=== PATIENT | male | born 1945 | race Caucasian/White ===

== ENCOUNTER 2016-08-21 13:43 | Emergency (ER) | payer OTHER ==
[2016-08-21] MEDS ORDERED: ACETAMINOPHEN 325 MG TABLET PO STA (14:40)
[2016-08-21] MEDS ORDERED: ACETAMINOPHEN 325 MG TABLET PO ONE (14:42)
== END 2016-08-21 16:42 | disposition home or self-care (01) ==
DX: S06.0X0A Concussion without loss of consciousness, initial encounter (principal); S00.03XA Contusion of scalp, initial encounter; S00.01XA Abrasion of scalp, initial encounter; W22.8XXA Striking against or struck by other objects, initial encounter; Y92.009 Unspecified place in unspecified non-institutional (private) residence as the place of occurrence of the external cause; G44.319 Acute post-traumatic headache, not intractable
CPT/HCPCS: 70450; 99283; 99284; A9270

== ENCOUNTER 2022-08-12 14:18 | Outpatient (CLI) | payer MEDICARE | END 2022-08-12 14:19 | disposition critical access hospital (66) | LOC: EMS 14:18 | DX: S00.12XA Contusion of left eyelid and periocular area, initial encounter (principal); S00.83XA Contusion of other part of head, initial encounter; M25.562 Pain in left knee; W11.XXXA Fall on and from ladder, initial encounter; Y92.008 Other place in unspecified non-institutional (private) residence as the place of occurrence of the external cause | CPT/HCPCS: A0425; A0429 ==

== ENCOUNTER 2022-08-12 14:36 | Emergency (ER) | payer MEDICARE, OTHER ==
[2022-08-12] MEDS ORDERED: ACETAMINOPHEN 325 MG TABLET PO STA (15:15)
--- NOTE | 2022-08-12 15:18 | ED Physician Documentation ---
History of Present Illness - Stated complaint Stated Complaint: FALL/HEAD LAC - Chief complaint Chief Complaint: Trauma Hd/Nk - History obtained from History obtained from: Patient, Family, EMS - Additonal information Additional information: The patient is brought to the emergency department by EMS for chief complaint of ground-level fall and head injury. The patient states that he was standing on a stepstool and suddenly pitched forward and fell onto the concrete floor of his garage. The patient was able to get himself up and walk into the house, but his told him to call EMS. The patient primarily hit the floor with his right face and has noticed increasing bruising and swelling over his right eyebrow. He also states that he hurt his left knee somehow in the process of falling. Patient however has been able to ambulate on the left lower extremity without difficulty. The patient denies any pain anywhere else. No other head trauma or loss of consciousness. No pain at any level of the spine. No hip or rib pain. No difficulty breathing or abdominal pain. He is not anticoagulated. Review of Systems Ten Systems: 10 systems reviewed and negative Constitutional: reports: Reviewed and negative Eyes: reports: Reviewed and negative Ears: reports: Reviewed and negative Nose: reports: Reviewed and negative Throat: reports: Reviewed and negative Cardiac: reports: Reviewed and negative Respiratory: reports: Reviewed and negative GI: reports: Reviewed and negative : reports: Reviewed and negative Skin: reports: Reviewed and negative Musculoskeletal: reports: Reviewed and negative Neurologic: reports: Head injury. denies: LOC Psychiatric: reports: Reviewed and negative Endocrine: reports: Reviewed and negative Immunocompromised: reports: Reviewed and negative PD PAST MEDICAL HISTORY - Past Medical History Cardiovascular: None Respiratory: None Endocrine/Autoimmune: None GI: None - Past Surgical History Past Surgical History: Yes HEENT: Tonsil/Adenoidectomy - Present Medications Home Medications: Ambulatory Orders Medication Instructions Recorded Confirmed HYDROcod/ACETAM 5/325 [[place] 5/325] 1 - 2 tablet PO Q6H PRN #14 tablet 08/12/22 Propranolol [Inderal] 10 mg PO BID 08/12/22 08/12/22 - Allergies Allergies/Adverse Reactions: Allergies Allergy/AdvReac Type Severity Reaction Status Date / Time codeine AdvReac Nausea Verified 08/12/22 14:48 - Social History Does the pt smoke?: No Smoking Status: Never smoker Does the pt drink ETOH?: No Does the pt have substance abuse?: No - Immunizations Immunizations are current?: Yes - POLST Patient has POLST: No PD ED PE NORMAL - Vitals Vital signs reviewed: Yes - General General: Alert and oriented X 3, No acute distress, Well developed/nourished - HEENT HEENT: PERRL, EOMI, Moist mucous membranes, Dentition benign, Other (Large supraorbital contusion with marked edema. No obvious bony deformity, though bone is difficult to palpate, secondary to edema. No tenderness, contusion, deformity or edema anywhere else on the face) - Neck Neck: No bony TTP - Cardiac Cardiac: Strong equal pulses - Respiratory Respiratory: No respiratory distress - Derm Derm: Warm and dry, No rash, Other (Right supraorbital contusion and small left knee contusion at the superomedial corner of the patella.) - Extremities Extremities: No deformity, No edema, Other (Moderate tenderness palpation focally at soft tissue adjacent to the superomedial corner of the patella. No deformity. No clicking or popping with movement. No instability) - Neuro Neuro: Alert and oriented X 3, community advocate 2-12 intact, No motor deficit, No sensory deficit, Normal speech - Psych Psych: Normal mood, Normal affect Results - Vitals Vitals: Vital Signs - 24 hr 08/12/22 08/12/22 14:38 16:57 Temperature 36.1 C L Heart Rate 58 L 67 Respiratory 16 16 Rate Blood Pressure 164/96 H 150/89 H O2 Saturation 99 100 Oxygen O2 Source Room air - Rads (name of study) Head CT Radiology: Final report received, EMP read indepedently, See rad report Left knee x-ray series Radiology: Final report received, EMP read indepedently, See rad report (No acute findings) PD Medical Decision Making - ED course Complexity details: reviewed results, re-evaluated patient, considered differential, d/w patient ED course: The patient was treated symptomatically with Tylenol and worked up with CTs of the head and face as well as x-rays of the left knee. The patient was found to have subgaleal hematoma but no Fractures or intracranial hemorrhage. His knee x-ray was unremarkable. The patient was feeling better after Tylenol and I did discuss with the patient and whether or not he would like to have something stronger at home for pain. Initially, the patient declined but then decided that he would indeed like to have a stronger analgesics. I [facility] a [facility] to the [facility] for [facility]. We have discussed home management symptoms, as well as the usual indications for return. Departure - Departure Disposition: 01 Home, Self Care Clinical Impression: Closed head injury Qualifiers: Encounter type: initial encounter Qualified Code(s): S09.90XA - Unspecified injury of head, initial encounter Traumatic hematoma of face Qualifiers: Encounter type: initial encounter Qualified Code(s): S00.83XA - Contusion of other part of head, initial encounter Fall from ladder Qualifiers: Encounter type: initial encounter Qualified Code(s): W11.XXXA - Fall on and from ladder, initial encounter Contusion of left knee Qualifiers: Encounter type: initial encounter Qualified Code(s): S80.02XA - Contusion of left knee, initial encounter Condition: Stable Instructions: ED Head Injury Closed, ED Hematoma Prescriptions: HYDROcod/ACETAM 5/325 [[place] 5/325] 1 - 2 tablet PO Q6H PRN #14 tablet PRN Reason: Pain Comments: Your CTs look good. There is no bleeding in the brain or fracture of any of your face or skull bones. You do have a blood collection underlying the skin over your eyebrow. This involves only the soft tissues and ultimately, will go away on its own. You may apply ice packs to help take down the swelling and ease some of the discomfort. A prescription for narcotic pain medicine for you has been electronically transmitted to the [facility] pharmacy in [place]. Discharge Date/Time: 08/12/22 17:14
--- NOTE | 2022-08-12 15:40 | CT Report ---
PROCEDURE: HEAD WO INDICATIONS: fall/trauma TECHNIQUE: Noncontrast 4.5 mm thick angled axial sections acquired from the foramen magnum to the vertex. For r adiation dose reduction, the following was used: automated exposure control, adjustment of mA and/or kV according to patient size. COMPARISON: None. FINDINGS: Image quality: Motion artifact limits evaluation.. CSF spaces: Basal cisterns are patent. No extra-axial fluid collections. Ventricles are normal in size and shape. Brain: No midline shift. No intracranial masses or hemorrhage. Reed-white matter interface is norm al. Skull and face: There is a moderate-sized subgaleal hematoma overlying the right aspect of the fronta l bone extending into the right preorbital soft tissues. Calvarium and visualized facial bones are in tact, without suspicious lesions. The bilateral orbits are intact without intraconal hematoma. Sinuses: Visualized sinuses and mastoids are clear. IMPRESSION: 1. No acute intracranial findings. 2. Right frontal subgaleal hematoma without underlying bony or orbital abnormality. Reviewed by: Ana Maria Suazo MD on 08/12/2022 3:39 PM PST Approved by: Ana Maria Suazo MD on 08/12/2022 3:39 PM PST Station ID: [id number]
--- NOTE | 2022-08-12 15:44 | XRAY Report ---
PROCEDURE: Knee 3 View LT INDICATIONS: pain sup. patella after fall. TECHNIQUE: 3 views of the left knee(s) were acquired. COMPARISON: None. FINDINGS: Bones: No displaced fracture is identified. Mild arthrosis. Soft tissues: No significant joint effusion. Dystrophic calcifications seen in front of the quadricep s tendon. IMPRESSION: No acute radiographic abnormality. If there is high concern for occult injury, consider repeat radiog baudilio or cross-sectional imaging. Reviewed by: Corey Brian MD on 08/12/2022 3:42 PM PST Approved by: Corey Brian MD on 08/12/2022 3:42 PM PST Station ID: [id number]
[2022-08-12 16:57] VITALS: BP 150/89
== END 2022-08-12 17:14 | disposition home or self-care (01) ==
LOC: EDBD → EDUNIT# → ED 14:36
DX: S00.83XA Contusion of other part of head, initial encounter (principal); S80.02XA Contusion of left knee, initial encounter; W11.XXXA Fall on and from ladder, initial encounter; Y92.008 Other place in unspecified non-institutional (private) residence as the place of occurrence of the external cause
CPT/HCPCS: 70450; 70486; 73562; 99282; 99284; A9270

== ENCOUNTER 2023-07-22 08:00 | Outpatient (CLI) | payer MEDICARE ==
--- NOTE | 2023-07-22 13:40 | XRAY Report ---
PROCEDURE: Abdomen 2 View X-Ray INDICATIONS: ABDOMINAL PAIN TECHNIQUE: 2 views of the abdomen were acquired. COMPARISON: None. FINDINGS: Surgical changes and devices: None. Bowel: No pneumoperitoneum. The bowel gas pattern is normal. Stool load within normal limits. Soft tissues: No masses; visualized solid organ contours appear normal in size. No suspicious abdom inal calcifications. Bones: No suspicious bony abnormalities. IMPRESSION: No acute process. Reviewed by: Lyndon Gunn MD on 07/22/2023 1:39 PM [facility] Approved by: Lyndon Gunn MD on 07/22/2023 1:39 PM [facility] Station ID: [id number]
== END 2023-07-22 23:59 | disposition home or self-care (01) ==
LOC: DI.S 08:00
PROVIDERS: ATTEND Physician Assistant
DX: R10.84 Generalized abdominal pain (principal)

== ENCOUNTER 2023-07-22 14:00 | Day surgery (SDC) | payer MEDICARE ==
[2023-07-22 14:32] LABS: BASOPHILS # (AUTO) 0.1 10^3/uL (0.0-0.1); BASOPHILS % (AUTO) 0.6 %; EOSINOPHILS # (AUTO) 0.2 10^3/uL (0.0-0.7); EOSINOPHILS % (AUTO) 1.6 %; HCT - HEMATOCRIT 47.5 % (42.0-52.0); HGB - HEMOGLOBIN 15.5 g/dL (14.0-18.0); LYMPHOCYTES # (AUTO) 1.5 10^3/uL (1.5-3.5); LYMPHOCYTES % (AUTO) 13.1 %; MEAN CORPUSCULAR HEMOGLOBIN 30.8 pg (27.0-31.0); MEAN CORPUSCULAR HGB CONC 32.6 g/dL (32.0-36.0); MEAN CORPUSCULAR VOLUME 94.2 fL (80.0-94.0); MEAN PLATELET VOLUME 9.3 fL (7.4-11.4); MONOCYTES # (AUTO) 0.8 10^3/uL (0.0-1.0); MONOCYTES % (AUTO) 7.3 %; NEUTROPHILS # (AUTO) 8.5 10^3/uL (1.5-6.6); NEUTROPHILS % (AUTO) 77.1 %; PLT - PLATELET COUNT 215 10^3/uL (130-450); RED BLOOD COUNT 5.04 10^6/uL (4.70-6.10); RED CELL DISTRIBUTION WIDTH 13.2 % (12.0-15.0)
[2023-07-22 14:50] LABS: ALBUMIN 4.7 g/dL (3.2-5.5); ALBUMIN/GLOBULIN RATIO 1.7 (1.0-2.2); CALCIUM 9.9 mg/dL (8.5-10.3); CREATININE 1.1 mg/dL (0.6-1.3); POTASSIUM 4.6 mmol/L (3.5-4.5); TOTAL PROTEIN 7.5 g/dL (6.4-8.9)
--- NOTE | 2023-07-22 15:26 | ED Physician Documentation ---
PD HPI ABD PAIN - Stated complaint Stated Complaint: GI - Chief complaint Chief Complaint: Abd Pain - History obtained from History obtained from: Patient - History of Present Illness Timing - onset: Yesterday (Onset yesterday of left to then bilateral left and right lower abdominal pain without any nausea or vomiting. He feels slightly distended. He had a bowel movement this morning that was small. No dysuria. Went to walk-in clinic and had x-ray that was concerning for obstruction or volvulus. to ER.) Timing - duration: Days (1) Timing - details: Gradual onset, Still present Quality: Cramping, Aching, Pain Location: Periumbilical, RLQ, LLQ Radiation: No: Chest, Left flank, Right flank Improved by: No: Eating Worsened by: No: Eating, Breathing, Palpation Associated symptoms: No: Fever, Nausea, Vomiting, Diarrhea, Dysuria, Loss of appetite Review of Systems Constitutional: reports: Other (last ate this morning.). denies: Fever, Chills Nose: denies: Rhinorrhea / runny nose, Congestion Throat: denies: Sore throat Respiratory: denies: Cough GI: reports: Abdominal Pain (since yesterday). denies: Nausea, Vomiting, Diarrhea Neurologic: denies: Generalized weakness, Altered mental status PD PAST MEDICAL HISTORY - Past Medical History Past Medical History: Yes Cardiovascular: None Respiratory: None Endocrine/Autoimmune: None GI: None - Past Surgical History Past Surgical History: Yes HEENT: Tonsil/Adenoidectomy Derm: Skin cancer surgery - Present Medications Home Medications: Ambulatory Orders Medication Instructions Recorded Confirmed HYDROcod/ACETAM 5/325 [[place] 5/325] 1 - 2 tablet PO Q6H PRN #14 tablet 08/12/22 Propranolol [Inderal] 10 mg PO BID 08/12/22 08/12/22 - Allergies Allergies/Adverse Reactions: Allergies Allergy/AdvReac Type Severity Reaction Status Date / Time codeine AdvReac Nausea Verified 07/22/23 14:03 - Social History Does the pt smoke?: No Smoking Status: Never smoker Does the pt drink ETOH?: No Does the pt have substance abuse?: No - Immunizations Immunizations are current?: Yes - POLST Patient has POLST: No PD ED PE NORMAL - Vitals Vital signs reviewed: Yes - General General: Alert and oriented X 3, No acute distress, Well developed/nourished - Cardiac Cardiac: RRR, No murmur - Respiratory Respiratory: Clear bilaterally - Abdomen Abdomen: Normal bowel sounds, Soft, Non distended, Other (tender periumbilicial to RLQ area with local guarding. No percussion nor rebound tenderness. No herniae.) - Male Male : Deferred - Rectal Rectal: Deferred - Back Back: No CVA TTP - Derm Derm: Normal color, Warm and dry Results - Vitals Vitals: Vital Signs - 24 hr 07/22/23 14:03 Temperature 36.5 C Heart Rate 72 Respiratory 16 Rate Blood Pressure 150/78 H O2 Saturation 98 Oxygen O2 Source Room air - Labs Labs: Laboratory Tests 07/22/23 07/22/23 14:27 14:27 WBC 11.0 H RBC 5.04 Hgb 15.5 Hct 47.5 MCV 94.2 H MCH 30.8 MCHC 32.6 RDW 13.2 Plt Count 215 MPV 9.3 Neut # (Auto) 8.5 H Lymph # (Auto) 1.5 [place] # (Auto) 0.8 Eos # (Auto) 0.2 Baso # (Auto) 0.1 Absolute Nucleated RBC 0.00 Nucleated RBC % 0.0 Sodium 137 Potassium 4.6 H Chloride 104 Carbon Dioxide 26 Anion Gap 7.0 BUN 21 H Creatinine 1.1 Estimated GFR (MDRD) 65 L Glucose 96 Calcium 9.9 Total Bilirubin 1.0 AST 16 ALT 13 Alkaline Phosphatase 52 Total Protein 7.5 Albumin 4.7 Globulin 2.8 Albumin/Globulin Ratio 1.7 Lipase 18 - Rads (name of study) abd/pelvic CT Relevant Findings:: Prelim report reviewed, Discussed with rads (very large distended appendixcitis without perforation nor abscess. ), EMP independent interpretation of test PD Medical Decision Making - ED course Complexity details: reviewed results, considered differential (Patient presents with onset and gradual worsening of abdominal pain yesterday mainly lower abdomen left now both sides. No nausea or vomiting. Bowel movement this morning. No dysuria. Feels slightly distended. Prior similar episode of ? bowel obstruction many years ago. No prior abdominal surg), d/w patient Reviewed Lab Results: The patient does not have any distention nor nausea or vomiting. I feel obstruction is less likely. However he does have tenderness in the periumbilical to lower right abdomen with local guarding. No generalized peritoneal signs. CT of the abdomen pelvis was done which revealed a very distended large appendix with a fecalith. No surrounding fluid or free air. The radiologist did call the report that it was significantly distended. I advised the patient of the findings. His last meal was this morning. He is afebrile at this point. He will be given IV fluids and maintained n.p.o. I did give initial dose of Zosyn IV. I called Dr. Jones is on-call for surgery who will see the patient as soon as he is out from the case he is about to start. They will do the surgery this evening. Nursing supervisor asbestos textile was notified and will arrange beds for appropriate postop recovery. Departure - Departure Disposition: ED Transfer to [facility] Clinical Impression: Acute bilateral lower abdominal pain Appendicitis, acute Qualifiers: Acute appendicitis type: with localized peritonitis Appendicitis gangrene presence: without gangrene Appendicitis perforation presence: without perforation Appendicitis abscess presence: without abscess Qualified Code(s): K35.30 - Acute appendicitis with localized peritonitis, without perforation or gangrene Condition: Stable Forms: PCP List
[2023-07-22] MEDS ORDERED: KETOROLAC 15 MG/ML VIAL IVP STA (15:27)
[2023-07-22] MEDS ORDERED: PIPERACILLIN/TAZOBACTAM 3.375 GM in SODIUM CHLORIDE 0.9% MINIBAG 100 ML IV STA (16:38)
--- NOTE | 2023-07-22 16:41 | CT Report ---
PROCEDURE: Above discussed with Carl Rodriguez MD at the time of dictation. INDICATIONS: mid/lower abd pain since yesterday CONTRAST: 100mL Omni 300 TECHNIQUE: After the administration of intravenous contrast, 5 mm thick sections acquired from the diaphragms to the symphysis. 5 mm thick coronal and sagittal reformats were acquired. For radiation dose reducti on, the following was used: automated exposure control, adjustment of mA and/or kV according to katerin ent size. COMPARISON: None FINDINGS: Image quality: Excellent. Lung bases and heart: Unremarkable. Liver: No solid mass. Gallbladder and biliary tree: No radiopaque stones or wall thickening. No biliary dilation. Spleen: No splenomegaly. Pancreas: No pancreatic ductal dilation. Adrenals: No adrenal nodule. Kidneys and ureters: No hydronephrosis. No renal cystic lesion which requires follow up. No solid mas s. Bowel and peritoneum: Remarkably distended and inflamed appendix measuring 17 mm in diameter with wal l enhancement and extensive inflammatory change in the surrounding fat. There is some inflammatory ed darcy present in the subjacent cecum. Lymph nodes: No central or retroperitoneal adenopathy. Vessels: No infrarenal aortic aneurysm. PELVIS Reproductive organs: Moderate prostatomegaly. Bladder: No abnormal wall thickening, accounting for underdistension. Pelvic lymph nodes: No pelvic adenopathy by size criteria. Bones: No aggressive osseous abnormality. Other: Bilateral fat-containing inguinal hernias. IMPRESSION: Remarkably dilated, extensively inflamed appendix. Extensive inflammatory change in the surrounding f at and edema in the subjacent cecum. Acute appendicitis with impending rupture. Above discussed with Carl Rodriguez MD at the time of dictation on 07/22/2023 at 1636 hours. Reviewed by: Salomon Loera MD on 07/22/2023 4:40 PM PST Approved by: Salomon Loera MD on 07/22/2023 4:40 PM PST Station ID: [id number]
[2023-07-22] MEDS ORDERED: iohexoL-300 100 ML VIAL IVP ONE (16:42)
[2023-07-22] MEDS ORDERED: LACTATED RINGERS 1,000 ML IV STA (16:53)
[2023-07-22] MEDS ORDERED: HYDROmorphone 1 MG/ML CARPUJECT IVP PRN (17:48)
[2023-07-22] MEDS ORDERED: ONDANSETRON 4 MG/2 ML VIAL IVP PRN ×3 (17:49→21:28)
--- NOTE | 2023-07-22 19:22 | HISTORY & PHYSICAL EXAMINATION ---
HPI - Admitted From Admitted from: ED - History Obtained From History obtained from: Patient Exam limitations: No limitations - History of Present Illness Severity at the worst: reports: Mild Pain Quality: reports: Dull Timing: reports: Gradual onset Duration: reports: Hours: (36) Improved with: reports: Rest PMH/PSH - Past Medical History Cardiovascular: positive: None Respiratory: positive: None Endocrine/Autoimmune: positive: None GI: positive: None - Past Surgical History HEENT: positive: Tonsil/Adenoidectomy Derm: positive: Skin cancer surgery Social & Family Hx - Social History Does the pt smoke?: No Smoking Status: Never smoker Does the pt drink ETOH?: No Does the pt have substance abuse?: No - POLST Patient has POLST: No - Family History Family History Comment/Other: : Emiliana [phone] Meds/Allgy - Home Medications Home Medications: Ambulatory Orders Medication Instructions Recorded Confirmed HYDROcod/ACETAM 5/325 [[place] 5/325] 1 - 2 tablet PO Q6H PRN #14 tablet 08/12/22 Propranolol [Inderal] 10 mg PO BID 08/12/22 08/12/22 - Allergies Allergies/Adverse Reactions: Allergies Allergy/AdvReac Type Severity Reaction Status Date / Time codeine AdvReac Nausea Verified 07/22/23 14:03 Review of Systems - Gastrointestinal Gastrointestinal: reports: Abdominal pain Exam - Vital Signs Vital Signs: Vital Signs x48h Temp Pulse Resp BP Pulse Ox 07/22/23 18:44 63 18 122/72 95 07/22/23 14:03 97.7 F 72 16 150/78 H 98 - Physical Exam General Appearance: positive: No acute distress Eyes Bilateral: positive: Normal inspection, PERRL ENT: positive: Pharynx nml Neck: positive: Nml inspection, Thyroid nml, Trachea midline Respiratory: positive: Chest non-tender, No respiratory distress, Breath sounds nml Cardiovascular: positive: Regular rate & rhythm, No murmur Peripheral Pulses: positive: 2+ Abdomen: positive: No distention, Other (Tenderness RLQ without rebound or referred rebound; + BS) Skin: positive: No rash, Warm, Dry Extremities: positive: Non-tender, Full ROM Neurologic/Psychiatric: positive: Oriented x3 Results - Lab Results Fish Bones: 07/22/23 14:27 07/22/23 14:27 Other Lab Results: Lab Results x24hrs 07/22/23 07/22/23 Range/Units 14:27 14:27 WBC 11.0 H (4.8-10.8) x10^3/uL RBC 5.04 (4.70-6.10) 10^6/uL Hgb 15.5 (14.0-18.0) g/dL Hct 47.5 (42.0-52.0) % MCV 94.2 H (80.0-94.0) fL MCH 30.8 (27.0-31.0) pg MCHC 32.6 (32.0-36.0) g/dL RDW 13.2 (12.0-15.0) % Plt Count 215 (130-450) 10^3/uL MPV 9.3 (7.4-11.4) fL Neut # (Auto) 8.5 H (1.5-6.6) 10^3/uL Lymph # (Auto) 1.5 (1.5-3.5) 10^3/uL [place] # (Auto) 0.8 (0.0-1.0) 10^3/uL Eos # (Auto) 0.2 (0.0-0.7) 10^3/uL Baso # (Auto) 0.1 (0.0-0.1) 10^3/uL Absolute Nucleated RBC 0.00 x10^3/uL Nucleated RBC % 0.0 /100WBC Sodium 137 (135-145) mmol/L Potassium 4.6 H (3.5-4.5) mmol/L Chloride 104 (101-111) mmol/L Carbon Dioxide 26 (21-32) mmol/L Anion Gap 7.0 (6-13) BUN 21 H (6-20) mg/dL Creatinine 1.1 (0.6-1.3) mg/dL Estimated GFR (MDRD) 65 L (>89) Glucose 96 (74-104) mg/dL Calcium 9.9 (8.5-10.3) mg/dL Total Bilirubin 1.0 (0.2-1.0) mg/dL AST 16 (10-42) IU/L ALT 13 (10-60) IU/L Alkaline Phosphatase 52 (42-121) IU/L Total Protein 7.5 (6.4-8.9) g/dL Albumin 4.7 (3.2-5.5) g/dL Globulin 2.8 (2.1-4.2) g/dL Albumin/Globulin Ratio 1.7 (1.0-2.2) Lipase 18 (11-82) U/L - Diagnostic Imaging Results Diagnostic Imaging Results: positive: See rad report Diagnostic Imaging Results Comments: CT Abd/Pelvis: Distended and inflamed appendix without evidence of rupture; Base of appendix inflamed. (my interpretation) Impression/Plan - Problem List Problem List: Assessment: 1) Acute appendicitis Plan: 1) Laparoscopic appendectomy, possible open appendectomy Consent: Alfonso has been counseled for the procedure, it's indications, risks, benefits and expected outcome as well as alternative therapies. We specifically discussed risks associated with anesthesia, bleeding, infection, injury to surrounding structures which may require additional surgery, and the possible need for conversion to an open procedure. We also discussed the possible need for a blood transfusion with its risks and benefits. Alfonso understands, agrees, and consents to the proposed operative strategy and requests that we proceed with the procedure as outlined in our discussion. Zenon Hughes MD General Surgery Service
[2023-07-22] MEDS ORDERED: fentaNYL 100 MCG/2 ML VIAL ONE ×2 (19:24→21:17)
[2023-07-22] MEDS ORDERED: PROPOFOL 200 MG/20 ML VIAL IVP ONE (19:24)
[2023-07-22] MEDS ORDERED: ROCURONIUM 50 MG/5 ML VIAL ONE (19:24)
--- NOTE | 2023-07-22 19:58 | ANESTHESIA ---
Pre-Anesthesia VS, & Labs - Diagnosis acute appendicitis - Procedure lap appy Vital Signs: Temp Pulse Resp BP Pulse Ox O2 Flow Rate 36.5 C 63 18 122/72 95 07/22/23 14:03 07/22/23 18:44 07/22/23 18:44 07/22/23 18:44 07/22/23 18:44 Height: 5 ft 7 in Weight (kg): 81 kg Body Mass Index: 27.9 BMI Classification: Overweight - NPO >8 hours - Lab Results Current Lab Results: Laboratory Tests 07/22/23 14:27: Sodium 137, Potassium 4.6 H, Chloride 104, Carbon Dioxide 26, Anion Gap 7.0, BUN 21 H, Creatinine 1.1, Estimated GFR (MDRD) 65 L, Glucose 96, Calcium 9.9, Total Bilirubin 1.0, AST 16, ALT 13, Alkaline Phosphatase 52, Total Protein 7.5, Albumin 4.7, Globulin 2.8, Albumin/Globulin Ratio 1.7, Lipase 18 07/22/23 14:27: WBC 11.0 H, RBC 5.04, Hgb 15.5, Hct 47.5, MCV 94.2 H, MCH 30.8, MCHC 32.6, RDW 13.2, Plt Count 215, MPV 9.3, Neut # (Auto) 8.5 H, Lymph # (Auto) 1.5, [place] # (Auto) 0.8, Eos # (Auto) 0.2, Baso # (Auto) 0.1, Absolute Nucleated RBC 0.00, Nucleated RBC % 0.0 Lab results reviewed: Yes Fish Bones: 07/22/23 14:27 07/22/23 14:27 Home Medications and Allergies Active Medications Hydromorphone HCl (Hydromorphone 1 Mg/Ml Carpuject) 1 mg IVP Q2H PRN PRN Reason: PAIN Lactated Ringer's (Lr) 1,000 mls @ 250 mls/hr IV .Q4H STA Stop: 07/22/23 20:52 Last Infusion: 07/22/23 17:59 Dose: 250 mls/hr Piperacillin Sod/Tazobactam (Sod 3.375 gm/ Sodium Chloride) 100 mls @ 200 mls/hr IV Q6H KRISTEN Ondansetron HCl (Ondansetron 4 Mg/2 Ml Vial) 4 mg IVP Q4H PRN PRN Reason: Nausea / Vomiting Propranolol [Inderal] 10 mg PO BID 08/12/22 Allergies/Adverse Reactions: Allergies Allergy/AdvReac Type Severity Reaction Status Date / Time codeine AdvReac Nausea Verified 07/22/23 14:03 Anes History & Medical History - Anesthetic History Anesthesia Complications: reports: No previous complications - Medical History Cardiovascular: reports: High cholesterol Pulmonary: reports: None Gastrointestinal: reports: None Urinary: reports: None Neuro: reports: None Musculoskeletal: reports: None Endocrine/Autoimmune: reports: None Blood Disorders: reports: None Skin: reports: None Smoking Status: Never smoker Psychosocial: reports: Cannabis (2-3 times per week, edibles) History of Cancer?: No - Surgical History Eyes Ears Nose Throat (EENT): reports: Tonsil/Adenoidectomy Dermatologic: reports: Skin cancer surgery Exam General: Alert, Oriented x3, Cooperative, No acute distress Dental: WNL Mouth Openin Fingerbreadth Neck Mobility: Normal Mallampati classification: III Thyromental Distance: 4-6 cm Mental/Cognitive Status: Alert/Oriented X3, Normal for patient Plan Anesthesia Type: General Consent for Procedure(s) Verified and Reviewed: Yes Code Status: Attempt Resuscitation ASA classification: 2-Mild systemic disease Is this case an emergency?: No
[2023-07-22] MEDS ORDERED: ATROPINE ABBOJECT 1 MG/10 ML SYRINGE IVP PRN (19:59)
[2023-07-22] MEDS ORDERED: HYDROmorphone 0.5 MG/0.5 ML SYRINGE IVP PRN ×2 (19:59→21:27)
[2023-07-22] MEDS ORDERED: NALOXONE 0.4 MG/ML VIAL IVP PRN (19:59)
[2023-07-22] MEDS ORDERED: MORPHINE 2 MG/ML CARPUJECT IVP PRN (19:59)
[2023-07-22] MEDS ORDERED: fentaNYL 100 MCG/2 ML VIAL IVP PRN (19:59)
[2023-07-22] MEDS ORDERED: LACTATED RINGERS 1,000 ML IV SCH ×2 (20:00→22:00)
[2023-07-22] MEDS ORDERED: LIDOCAINE 2%-EPI 1:100000 20 ML MDV ONE (20:24)
[2023-07-22] MEDS ORDERED: BUPIVACAINE 0.25% PF 10 ML VIAL ONE (20:24)
[2023-07-22] MEDS ORDERED: DEXAMETHASONE 4 MG/ML VIAL ONE (20:25)
[2023-07-22] MEDS ORDERED: BUPIVACAINE 0.25% PF 30 ML VIAL SUBQ ONE ×2 (20:39)
[2023-07-22] MEDS ORDERED: LIDOCAINE 2%-EPI 1:100000 20 ML MDV SUBQ ONE ×2 (20:40)
[2023-07-22] MEDS ORDERED: SUGAMMADEX 200 MG/2 ML VIAL IVP ONE (21:03)
[2023-07-22] MEDS ORDERED: ONDANSETRON 4 MG/2 ML VIAL ONE (21:04)
[2023-07-22] MEDS ORDERED: LACTATED RINGERS 1,000 ML IV ONE (21:30)
--- NOTE | 2023-07-22 21:37 | OPERATIVE REPORT ---
Operative Report - Other Other Information/Narrative: PROCEDURE DATE: 07/22/2023 PREOPERATIVE DIAGNOSIS: Alfonso is a 77 year old male who has clinical, CT, and laboratory findings consistent with acute appendicitis. Alfonso is taken to the operating room for laparoscopic appendectomy, possible open appendectomy. POSTOPERATIVE DIAGNOSIS:Acute appendicitis NAME OF PROCEDURE: Laparoscopic appendectomy SURGEON: Kimani Hughes MD, FACS SUPERVISOR [employer]: [employer] ANESTHESIA: General endotracheal. ESTIMATED BLOOD LOSS: 15 mL. DRAINS: None SPECIMEN: Appendix COMPLICATIONS None FINDINGS: Markedly inflamed and distended appendix attached to a normal, soft cecum. The appendix was wrapped in thick omentum that was adhesed to the lateral peritoneal wall. DESCRIPTION OF OPERATION: After consent for the procedure was obtained, the patient was brought to the operating room where in the supine position, general endotracheal anesthesia was administered. A surgical time-out was performed, indicating the patient and the procedure to be performed. The abdomen was prepped with alcohol-free chloroprep and draped in a sterile fashion. The subcutaneous tissue of each of the planned port sites was infiltrated with 1% Lidocaine with epinephrine in a 50/50 mix with 1/4 % Marcaine mixture. Pneumoperitoneum was achieved through a subumbilical incision using a August cannula and an open technique. Under direct vision, a 5 mm muscle splitting, non-cutting port was placed in the right lower quadrant and an 12 mm muscle splitting, non-cutting port was placed in the left lower quadrant. Inspection revealed the above noted findings. Placing the patient in Trendelenburg position slightly rolled to the left allowed mobilization of the right colon medially using endoshears to transect the lateral peritoneal reflection of the right colon and the adhesions from the omentum to the abdominal wall. The appendix was then identified, gently grasped with a ratcheted grasper and retracted superiorly and anteriorly. The appendix and meso-appendix were dissected away from the cecum and proximal right colon. I transected the mesoappendix with a harmonic scalpel and healthy tissue at the base of the appendix was identified. The base of the appendix was stapled and transected flush with the cecum using an Endo-RICCO stapling device using gastrointestinal pedro. The appendix was then brought out through the left lower quadrant port site incision using an EndoCatch device. Reinspection of the right lower quadrant revealed no evidence of bleeding or leakage from the previous dissection site. The right lower quadrant was irrigated with warm sterile saline. The irrigant was aspirated. A search was made for sponges, packs, instruments, and needles. None were found. The sponge, pack, instrument, and needle counts were relayed to me as being correct. The left lower quadrant port site was closed with a 2-0 Vicryl under direct vision using an endo-close device. The pneumoperitoneum then was released. There was no evidence of bleeding from the laparoscopic port sleeve sites upon release of the pneumoperitoneum. The subumbilical incision was closed with 2-0 Vicryl for the linea alba. The skin of each of the port sites was closed with interrupted 4-0 Monocril in a subcuticular fashion with Steri-Strips to reinforce the epidermis. Dressings were placed. The patient tolerated the procedure well and was brought to the recovery room with stable vital signs.
--- NOTE | 2023-07-22 21:54 | ANESTHESIA POST OP EVALUATION ---
Anesthesia Post Eval - Post Anesthesia Eval Vitals: Last Vital Signs Temp 36.1 C L 07/22/23 21:50 Pulse 61 07/22/23 21:50 Resp 15 07/22/23 21:50 BP 145/74 H 07/22/23 21:50 Pulse Ox 96 07/22/23 21:50 O2 Flow Rate CV Function Including HR & BP: Stable Pain Control: Satisfactory Nausea & Vomiting: Negative Mental Status: Baseline Respiratory Status: Airway Patent Hydration Status: Satisfactory Anesthesia Complications: None
[2023-07-22] MEDS ORDERED: PIPERACILLIN/TAZOBACTAM 3.375 GM in SODIUM CHLORIDE 0.9% MINIBAG 100 ML IV SCH (22:00)
[2023-07-22] MEDS: ACETAMINOPHEN 325 MG TABLET PO SCH (22:41)
[2023-07-22] MEDS: PIPERACILLIN/TAZOBACTAM 3.375 GM in SODIUM CHLORIDE 0.9% MINIBAG 100 ML IV SCH (23:52)
[2023-07-22] MEDS: IBUPROFEN 600 MG TABLET PO SCH (23:58)
[2023-07-23] MEDS: IBUPROFEN 600 MG TABLET PO SCH ×2 (00:29→06:07)
[2023-07-23] MEDS: ACETAMINOPHEN 325 MG TABLET PO SCH ×2 (03:19→10:00)
[2023-07-23 05:40] LABS: BASOPHILS % (AUTO) 0.1 %; HCT - HEMATOCRIT 42.2 % (42.0-52.0); HGB - HEMOGLOBIN 13.9 g/dL (14.0-18.0); LYMPHOCYTES # (AUTO) 0.7 10^3/uL (1.5-3.5); LYMPHOCYTES % (AUTO) 7.7 %; MEAN CORPUSCULAR HEMOGLOBIN 31.4 pg (27.0-31.0); MEAN CORPUSCULAR HGB CONC 32.9 g/dL (32.0-36.0); MEAN CORPUSCULAR VOLUME 95.5 fL (80.0-94.0); MEAN PLATELET VOLUME 9.8 fL (7.4-11.4); MONOCYTES # (AUTO) 0.2 10^3/uL (0.0-1.0); MONOCYTES % (AUTO) 2.8 %; NEUTROPHILS # (AUTO) 7.7 10^3/uL (1.5-6.6); NEUTROPHILS % (AUTO) 89.1 %; PLT - PLATELET COUNT 200 10^3/uL (130-450); RED BLOOD COUNT 4.42 10^6/uL (4.70-6.10); RED CELL DISTRIBUTION WIDTH 13.2 % (12.0-15.0); WHITE BLOOD COUNT 8.6 x10^3/uL (4.8-10.8)
[2023-07-23 06:05] LABS: POTASSIUM 4.5 mmol/L (3.5-4.5)
[2023-07-23] MEDS: PIPERACILLIN/TAZOBACTAM 3.375 GM in SODIUM CHLORIDE 0.9% MINIBAG 100 ML IV SCH (06:08)
--- NOTE | 2023-07-23 07:03 | PROVIDER PROGRESS NOTE ---
Progress Note General Surgery Post-op Progress Nore S: AAO; Minimal abdominal pain; Tolerating liquids and has ambulated and urinated; pain under control with Tylenol and NSAID O: VSS, afeb; Lungs clear; Heart NSR; Abd soft; dressings dry; + BS Labs - OK A: S/P lap appy for acute appendicitis - no immediate post op issues Plan: 1) Advance diet 2) Discharge to home when tolerating PO well 3) FU [facility] in 7-10 days or sooner as needed Home Care: 1) Diet as tolerated 2) Medications - all usual meds plus Tylenol 650 mg orally 4 x a day for 3 days then as needed Ibuprofen 600 mg orally 3 x a day with meals x 3 days then as needed Augmentin 875 mg orally 2 x a day x 3 days 3) Activity: as tolerated; May shower later today or tomorrow. Remove the brown band aids but leave the white steri-strips in place 4) Follow up Surgery Clinic in 7-10 days. An office staff member will contact you by phone with the date and time 5) Contact the clinic or ED with questions or problems Kimani Hughes MD, FACS General Surgery Service [facility]
--- NOTE | 2023-07-23 07:06 | Discharge Plan ---
Discharge Plan Problem Reviewed?: Yes Disposition: Home, Self Care Condition: Good Prescriptions: Ibuprofen [Motrin] 600 mg PO Q8HR #60 tab Amox/Clav 875/125 [Augmentin 875/125 Tab] 1 tablet PO Q12H 3 Days #6 tablet Acetaminophen [Tylenol] 650 mg PO Q6H #60 tab Diet: Regular Activity Restrictions: Activity as Tolerated Shower Restrictions: No Driving Restrictions: No Instruction Topics: Appendectomy Laparoscopic Dc, Appendectomy After Additional Instructions or Follow Up instructions: Home Care: 1) Diet as tolerated 2) Medications - all usual meds plus Tylenol 650 mg orally 4 x a day for 3 days then as needed Ibuprofen 600 mg orally 3 x a day with meals x 3 days then as needed Augmentin 875 mg orally 2 x a day x 3 days 3) Activity: as tolerated; May shower later today or tomorrow. Remove the brown band aids but leave the white steri-strips in place 4) Follow up Surgery Clinic in 7-10 days. An office staff member will contact you by phone with the date and time 5) Contact the clinic or ED with questions or problems Kimani Hughes MD, FACS General Surgery Service [facility] No Smoking: If you smoke, Please STOP! Call for help.
[2023-07-23 07:58] VITALS: O2SAT 94
[2023-07-23 10:41] VITALS: BP 137/85
== END 2023-07-23 10:35 | disposition home or self-care (01) ==
LOC: ED 14:00 → SDS 19:00 → MS3 21:13 → SDS 07-23 10:35
PROVIDERS: ATTEND Surgery
PROC: 0DTJ4ZZ Resection of Appendix, Percutaneous Endoscopic Approach (ICD-10-PCS; principal; 2023-07-22 20:15)
DX: K35.30 Acute appendicitis with localized peritonitis, without perforation or gangrene (principal)
CPT/HCPCS: 36415; 44970; 74177; 80048; 80053; 83690; 85025; 96365; 96375; 99285; A9270; J7120; Q9967

== ENCOUNTER 2023-07-28 16:18 | Emergency (ER) | payer MEDICARE ==
[2023-07-28 16:44] LABS: BASOPHILS # (AUTO) 0.1 10^3/uL (0.0-0.1); BASOPHILS % (AUTO) 0.5 %; EOSINOPHILS # (AUTO) 0.2 10^3/uL (0.0-0.7); HCT - HEMATOCRIT 44.4 % (42.0-52.0); HGB - HEMOGLOBIN 14.7 g/dL (14.0-18.0); LYMPHOCYTES # (AUTO) 1.6 10^3/uL (1.5-3.5); LYMPHOCYTES % (AUTO) 14.7 %; MEAN CORPUSCULAR HEMOGLOBIN 30.8 pg (27.0-31.0); MEAN CORPUSCULAR HGB CONC 33.1 g/dL (32.0-36.0); MEAN CORPUSCULAR VOLUME 93.1 fL (80.0-94.0); MONOCYTES # (AUTO) 0.9 10^3/uL (0.0-1.0); MONOCYTES % (AUTO) 8.2 %; NEUTROPHILS # (AUTO) 8.1 10^3/uL (1.5-6.6); NEUTROPHILS % (AUTO) 74.3 %; PLT - PLATELET COUNT 240 10^3/uL (130-450); RED BLOOD COUNT 4.77 10^6/uL (4.70-6.10); WHITE BLOOD COUNT 10.9 x10^3/uL (4.8-10.8)
--- NOTE | 2023-07-28 16:50 | ED Physician Documentation ---
PD HPI ABD PAIN - Stated complaint Stated Complaint: POST OP PX - Chief complaint Chief Complaint: Abd Pain - History obtained from History obtained from: Patient - History of Present Illness Pain level max: 8 Pain level now: 5 Quality: Aching, Pain Location: RLQ Associated symptoms: No: Fever, Nausea, Vomiting, Hematemesis, Diarrhea, Constipation, Melena, Hematochezia, Dysuria Recently seen: Not recently seen - Additional information Additional information: 77-year-old male presents to the emergency department approximately 5 days status post an emergency appendectomy. He states that he was offered pain medication after the surgery but did not think that he would need the pain medication so said no. He has had continued pain over the past several days, called the surgeon's office to request pain medication and was told he needed to come to the ER instead. No fevers. No vomiting. No diarrhea or constipation. Pain is worse with movement and palpation. Nothing makes it better. No urinary issues. No blood in the stool. Review of Systems Constitutional: denies: Fever, Chills GI: denies: Vomiting, Diarrhea Skin: denies: Rash Musculoskeletal: denies: Neck pain, Back pain Neurologic: denies: Headache PD PAST MEDICAL HISTORY - Past Medical History Past Medical History: Yes Cardiovascular: High cholesterol Respiratory: None Neuro: None Endocrine/Autoimmune: None GI: None : None HEENT: None Psych: None Musculoskeletal: None Derm: None - Past Surgical History Past Surgical History: Yes General: Appendectomy HEENT: Tonsil/Adenoidectomy Derm: Skin cancer surgery - Present Medications Home Medications: Ambulatory Orders Medication Instructions Recorded Confirmed Propranolol [Inderal] 10 mg PO BID 08/12/22 08/12/22 Acetaminophen [Tylenol] 650 mg PO Q6H #60 tab 07/23/23 07/28/23 Ibuprofen [Motrin] 600 mg PO Q8HR #60 tab 07/23/23 07/28/23 Amox/Clav 875/125 [Augmentin] 1 tab PO Q12H #20 tablet 07/28/23 Oxycodone HCl/Acetaminophen 1 - 2 each PO Q6H PRN #14 tablet 07/28/23 [Percocet 5-325 mg Tablet] MDD 6 tabs - Allergies Allergies/Adverse Reactions: Allergies Allergy/AdvReac Type Severity Reaction Status Date / Time codeine AdvReac Nausea Verified 07/28/23 16:28 - Social History Does the pt smoke?: No Smoking Status: Never smoker Does the pt drink ETOH?: No Does the pt have substance abuse?: No - Immunizations Immunizations are current?: Yes - POLST Patient has POLST: No PD ED PE NORMAL - Vitals Vital signs reviewed: Yes - General General: Alert and oriented X 3, No acute distress - HEENT HEENT: PERRL, Moist mucous membranes - Neck Neck: Supple, no meningeal sign - Cardiac Cardiac: RRR, Strong equal pulses - Respiratory Respiratory: No respiratory distress, Clear bilaterally - Abdomen Abdomen: Soft, Non tender, Non distended, Other (Incisions are clean dry and intact. No signs of infection.) - Back Back: No CVA TTP, No spinal TTP - Derm Derm: Warm and dry - Extremities Extremities: No edema, No calf tenderness / cord - Neuro Neuro: Alert and oriented X 3 - Psych Psych: Normal mood, Normal affect Results - Vitals Vitals: Vital Signs - 24 hr 07/28/23 07/28/23 07/28/23 16:19 16:28 17:58 Temperature 36.3 C L 97.7 C H Heart Rate 64 70 57 L Respiratory 17 16 18 Rate Blood Pressure 135/77 H 134/81 H 166/90 H O2 Saturation 98 98 99 07/28/23 20:11 Temperature Heart Rate 67 Respiratory 18 Rate Blood Pressure 117/81 H O2 Saturation 97 Oxygen O2 Source Room air - Labs Labs: Laboratory Tests 07/28/23 07/28/23 07/28/23 16:38 16:38 17:20 WBC 10.9 H RBC 4.77 Hgb 14.7 Hct 44.4 MCV 93.1 MCH 30.8 MCHC 33.1 RDW 13.0 Plt Count 240 MPV 9.0 Neut # (Auto) 8.1 H Lymph # (Auto) 1.6 [place] # (Auto) 0.9 Eos # (Auto) 0.2 Baso # (Auto) 0.1 Absolute Nucleated RBC 0.00 Nucleated RBC % 0.0 Sodium 136 Potassium 4.1 Chloride 104 Carbon Dioxide 26 Anion Gap 6.0 BUN 19 Creatinine 1.1 Estimated GFR (MDRD) 65 L Glucose 106 H Calcium 9.6 Total Bilirubin 0.7 AST 19 ALT 23 Alkaline Phosphatase 53 Total Protein 6.9 Albumin 4.2 Globulin 2.7 Albumin/Globulin Ratio 1.6 Lipase 29 Urine Color YELLOW Urine Clarity CLEAR Urine pH 6.0 Ur Specific [place] >=1.030 H Urine Protein TRACE Urine Glucose (UA) NEGATIVE Urine Ketones 15 H Urine Occult Blood NEGATIVE Urine Nitrite NEGATIVE Urine Bilirubin NEGATIVE Urine Urobilinogen 0.2 (NORMAL) Ur Leukocyte Esterase NEGATIVE Ur Microscopic Review NOT INDICATED Urine Culture Comments NOT INDICATED - Rads (name of study) ct abd/pelvis Relevant Findings:: Final report received, See rad report PD Medical Decision Making - ED course Complexity details: reviewed results, re-evaluated patient, considered differential, d/w patient, d/w benefits sales consultant ED course: 77-year-old male with increasing pain after recent appendectomy. I reviewed the images on his CT scan. Appears to show a partial appendix that appears to still have appendicitis. There does not appear to be any perforation or abscess. I consulted surgery, Dr. Mace, who came and evaluated the patient. She spoke with the original surgeon as well. The plan will be to place the patient on pain medication and oral antibiotics. Follow-up closely in the office and then plan for an interval appendectomy. Patient is very well-appearing, nontoxic. Abdomen is soft, nontender nondistended on serial exam Pain well-controlled after Toradol. Patient counseled regarding signs and symptoms for which I believe and urgent re-evaluation would be necessary. Patient with good unders tanding of and agreement to plan and is comfortable going home at this time This document was made in part using voice recognition software. While efforts are made to proofread this document, sound alike and grammatical errors may occur. Departure - Departure Disposition: 01 Home, Self Care Clinical Impression: Appendicitis Qualifiers: Appendicitis type: unspecified Qualified Code(s): K37 - Unspecified appendicitis Condition: Good Instructions: Appendicitis Follow-Up: Poncho Mace MD [Provider Admit Priv/Credential] - Prescriptions: Amox/Clav 875/125 [Augmentin] 1 tab PO Q12H #20 tablet Oxycodone HCl/Acetaminophen [Percocet 5-325 mg Tablet] 1 - 2 each PO Q6H PRN #14 tablet MDD 6 tabs PRN Reason: pain Comments: Your prescriptions were sent to the [facility] pharmacy. Please take all antibiotics until gone. Please follow-up with Dr. Mace as instructed. Please return if you worsen. I am prescribing a short course of narcotic pain medication for you. These are potentially dangerous and addictive medications that should be used carefully. These medications may constipate you. Take an otes-qri-oevihzf stool softener (docusate) twice daily with plenty of water while taking these medications. If you go 24 hours without a bowel movement, take nqhk-nne-brmygyu miralax, per package instructions. Do not drink or drive while taking these medications. If you received narcotic or sedating medications while in the emergency department, do not drive for 24 hours. Store this medication in a safe, secure place and out of reach of children. It is a violation of federal law to give or sell this medication to another person or to use in a manner other than prescribed. The ED will not refill narcotic prescriptions, including prescriptions lost or stolen. To dispose of unwanted medications: 1. [facility] at [address] in [place] has a medication drop box. They accept prescription medications (in pill form) Wednesday through Wednesday 9:00 a.m. to 5:00 p.m. 2. The [facility] [employer] accepts prescription medications (in pill form only) for disposal year round. Call for more information. 3. Contact the [facility] for the next [facility] sponsored prescription drug collection event. , [phone], or [phone]; Forms: PCP List Discharge Date/Time: 07/28/23 19:35
[2023-07-28 17:16] LABS: ALBUMIN 4.2 g/dL (3.2-5.5); ALBUMIN/GLOBULIN RATIO 1.6 (1.0-2.2); BILIRUBIN,TOTAL 0.7 mg/dL (0.2-1.0); CALCIUM 9.6 mg/dL (8.5-10.3); CREATININE 1.1 mg/dL (0.6-1.3); POTASSIUM 4.1 mmol/L (3.5-4.5); TOTAL PROTEIN 6.9 g/dL (6.4-8.9)
[2023-07-28] MEDS ORDERED: KETOROLAC 30 MG/ML VIAL IVP STA (17:27)
[2023-07-28] MEDS ORDERED: iohexoL-300 100 ML VIAL IVP ONE (17:35)
[2023-07-28 18:00] LABS: BILIRUBIN,URINE NEGATIVE (NEGATIVE); GLUCOSE, URINE (UA) NEGATIVE (NEGATIVE); KETONES,URINE (UA) 15 mg/dL (NEGATIVE); LEUKOCYTE ESTERASE, URINE NEGATIVE (NEGATIVE); NITRITE,URINE NEGATIVE (NEGATIVE); OCCULT BLOOD,URINE NEGATIVE (NEGATIVE); PROTEIN,URINE TRACE mg/dL (NEGATIVE); UROBILINOGEN,URINE 0.2 (NORMAL) E.U./dL (NORMAL)
[2023-07-28 18:02] LABS: CLARITY,URINE CLEAR (CLEAR)
[2023-07-28] MEDS ORDERED: AMOX/CLAV 875 MG/125 MG TABLET PO STA (19:03)
--- NOTE | 2023-07-28 19:12 | CONSULTATION NOTE ---
Referring Provider Name of Referring Provider:: ED (Zachariah) Consult Date: 07/28/23 Chief Complaint - Chief Complaint Chief Complaint: pain after surgery History of Present Illness - Admitted From Admitted From:: not being admitted - History Obtained From Records Reviewed: yes History obtained from: patient, chart, Dr. Hughes - History of Present Illness HPI Comment/Other: Patient came in with appendicitis last and underwent laparoscopic appendectomy. He went home with three days of augmentin and initially he felt better. He's been able to tolerate a regular diet. He has not had any fevers. The last 36 hours, he has had more pain and has been "feeling worse overall," prompting him to come back to the hospital. At the time of my visit, he is feeling "much better." History - Past Medical History Cardiovascular: reports: High cholesterol Respiratory: reports: None Neuro: reports: None Endocrine/Autoimmune: reports: None GI: reports: None : reports: None HEENT: reports: None Psych: reports: None Musculoskeletal: reports: None Derm: reports: None - Past Surgical History General: reports: Appendectomy HEENT: reports: Tonsil/Adenoidectomy Derm: reports: Skin cancer surgery - POLST Patient has POLST: No Meds/Allgy - Home Medications Home Medications: Ambulatory Orders Medication Instructions Recorded Confirmed Propranolol [Inderal] 10 mg PO BID 08/12/22 08/12/22 Acetaminophen [Tylenol] 650 mg PO Q6H #60 tab 07/23/23 07/28/23 Ibuprofen [Motrin] 600 mg PO Q8HR #60 tab 07/23/23 07/28/23 - Allergies Allergies/Adverse Reactions: Allergies Allergy/AdvReac Type Severity Reaction Status Date / Time codeine AdvReac Nausea Verified 07/28/23 16:28 Review of Systems - Constitutional Constitutional: reports: Other (Negative except for HPI and PMH.) Exam - Vital Signs Reviewed Vital Signs: Yes Vital Signs: Vital Signs x48h Temp Pulse Resp BP Pulse Ox 07/28/23 17:58 57 L 18 166/90 H 99 07/28/23 16:28 97.7 C H 70 16 134/81 H 98 07/28/23 16:19 36.3 C L 64 17 135/77 H 98 - Physical Exam General Appearance: positive: No acute distress, Alert Eyes Bilateral: positive: Normal inspection ENT: positive: No signs of dehydration Neck: positive: Trachea midline Respiratory: positive: No respiratory distress Cardiovascular: positive: Regular rate & rhythm Peripheral Pulses: positive: 2+ Abdomen: positive: No distention, Tenderness (mild, appropriate post op incisional pain, negative Rovsing, no significant pain with palpation at McBurney's point.). negative: Guarding, Rebound, Mass Skin: positive: No rash Extremities: positive: Non-tender, Full ROM Neurologic/Psychiatric: positive: Oriented x3 Conclusion and Plan - Lab Results Laboratory Results 07/28/23 17:20: Urine Color YELLOW, Urine Clarity CLEAR, Urine pH 6.0, Ur S pecific [place] >=1.030 H, Urine Protein TRACE, Urine Glucose (UA) NEGATIVE, Urine Ketones 15 H, Urine Occult Blood NEGATIVE, Urine Nitrite NEGATIVE, Urine Bilirubin NEGATIVE, Urine Urobilinogen 0.2 (NORMAL), Ur Leukocyte Esterase NEGATIVE, Ur Microscopic Review NOT INDICATED, Urine Culture Comments NOT INDICATED 07/28/23 16:38: Sodium 136, Potassium 4.1, Chloride 104, Carbon Dioxide 26, Anion Gap 6.0, BUN 19, Creatinine 1.1, Estimated GFR (MDRD) 65 L, Glucose 106 H, Calcium 9.6, Total Bilirubin 0.7, AST 19, ALT 23, Alkaline Phosphatase 53, Total Protein 6.9, Albumin 4.2, Globulin 2.7, Albumin/Globulin Ratio 1.6, Lipase 29 07/28/23 16:38: WBC 10.9 H, RBC 4.77, Hgb 14.7, Hct 44.4, MCV 93.1, MCH 30.8, MCHC 33.1, RDW 13.0, Plt Count 240, MPV 9.0, Neut # (Auto) 8.1 H, Lymph # (Auto) 1.6, [place] # (Auto) 0.9, Eos # (Auto) 0.2, Baso # (Auto) 0.1, Absolute Nucleated RBC 0.00, Nucleated RBC % 0.0 - Diagnostic Imaging Results Diagnostic Imaging Results: positive: Read independently (residual appendix appears to be present on CT with mild associated inflammation (decreased from previous) no free fluid, no free air. Report still pending at this time.) - Consultation Note Consultation Note: 77 y/o M with: 1. appendicitis, s/p lap appendectomy, POD#6 - benign findings on pathology - now with increased pain - possible residual appendix - minimal pain on exam after one dose of toradol - plan to restart PO antibiotics and have patient follow up with me in clinic on Wednesday. - I explained the patient's imaging findings as well as the fact that one week after initial surgery is a less than ideal time to have a second surgery. We discussed options including IV and PO antibiotics and the patient would like to try to go home with PO antibiotics, as above. He had a colonoscopy with one adenomatous polyp identified about 4 months ago. We will discuss possible interval diagnostic laparoscopy with possible interval appendectomy of residual appendix with patient in greater detail once acute illness has resolved. Thank you for calling me to see this patient! I will follow him closely in clinic.
[2023-07-28 20:16] VITALS: BP 117/81; O2SAT 97
--- NOTE | 2023-07-28 21:05 | CT Report ---
PROCEDURE: ABDOMEN/PELVIS W INDICATIONS: RLQ pain s/p appendectomy x 1 week CONTRAST: 100ml omni 300 TECHNIQUE: After the administration of oral contrast contrast, 5 mm thick sections acquired from the diaphragms to the symphysis. 5 mm thick coronal and sagittal reformats were acquired. For radiation dose reduc tion, the following was used: automated exposure control, adjustment of mA and/or kV according to pa tient size. COMPARISON: CT abdomen pelvis 07/22/2023 FINDINGS: Image quality: Excellent. Lung bases and heart: Unremarkable. Liver: No solid mass. Gallbladder and biliary tree: No radiopaque stones or wall thickening. No biliary dilation. Spleen: No splenomegaly. Pancreas: No pancreatic ductal dilation. Adrenals: No adrenal nodule. Kidneys and ureters: No hydronephrosis. No renal cystic lesion which requires follow up. No solid mas s. Bowel and peritoneum: No bowel distension. No pathologic free fluid. Status post appendectomy. The ap pendiceal stump is mildly dilated measuring up to 1.0 cm with mild wall enhancement (5/27), overall d ecreased compared to prior CT 07/22/2023. Interval resolution of surrounding inflammatory changes in t he right lower quadrant. Lymph nodes: No central or retroperitoneal adenopathy. Vessels: No infrarenal aortic aneurysm. PELVIS Reproductive organs: Prostatomegaly, as before. Bladder: No abnormal wall thickening, accounting for underdistension. Pelvic lymph nodes: No pelvic adenopathy by size criteria. Bones: No aggressive osseous abnormality. Other: No significant ventral or inguinal hernia. IMPRESSION: Status post appendectomy with mild dilation and wall enhancement of the remaining appendiceal stump. Interval decrease of surrounding inflammatory changes in the right lower quadrant compared to CT 07/22. Reviewed by: Gege Amin MD on 07/28/2023 9:04 PM PST Approved by: Gege Amin MD on 07/28/2023 9:04 PM PST Station ID: [id number]
== END 2023-07-28 19:35 | disposition home or self-care (01) ==
LOC: ED 16:18
DX: K37 Unspecified appendicitis (principal); Z98.890 Other specified postprocedural states
CPT/HCPCS: 36415; 74177; 80053; 81003; 83690; 85025; 96374; 99284; A9270; Q9967; 81001; 87086

== ENCOUNTER 2023-07-29 19:23 | Emergency (ER) | payer MEDICARE ==
[2023-07-29 19:41] VITALS: O2SAT 99
[2023-07-29] MEDS ORDERED: METOCLOPRAMIDE 10 MG TABLET PO STA (20:02)
[2023-07-29] MEDS ORDERED: CIPROFLOXACIN 250 MG TABLET PO STA (20:02)
[2023-07-29] MEDS ORDERED: metroNIDAZOLE 250 MG TABLET PO STA (20:02)
--- NOTE | 2023-07-29 20:05 | ED Physician Documentation ---
PD HPI ABD PAIN - Stated complaint Stated Complaint: NAUSEA - Chief complaint Chief Complaint: Abd Pain - History obtained from History obtained from: Patient - Additional information Additional information: He had appendicitis about a week ago and seen last evening for more pain and was diagnosed with potential stump appendicitis. Our surgeon recommended conservative care with antibiotics and after picking up the first dose of Augmentin this morning he started to feel "[place]," with upper abdominal upset and nausea. The lower abdominal pain is resolved. PD PAST MEDICAL HISTORY - Past Medical History Past Medical History: No Cardiovascular: High cholesterol Respiratory: None Neuro: None Endocrine/Autoimmune: None GI: None : None HEENT: None Psych: None Musculoskeletal: None Derm: None - Past Surgical History Past Surgical History: Yes General: Appendectomy HEENT: Tonsil/Adenoidectomy Derm: Skin cancer surgery - Present Medications Home Medications: Ambulatory Orders Medication Instructions Recorded Confirmed Propranolol [Inderal] 10 mg PO BID 08/12/22 08/12/22 Acetaminophen [Tylenol] 650 mg PO Q6H #60 tab 07/23/23 07/28/23 Ibuprofen [Motrin] 600 mg PO Q8HR #60 tab 07/23/23 07/28/23 Amox/Clav 875/125 [Augmentin] 1 tab PO Q12H #20 tablet 07/28/23 Oxycodone HCl/Acetaminophen 1 - 2 each PO Q6H PRN #14 tablet 07/28/23 [Percocet 5-325 mg Tablet] MDD 6 tabs Ciprofloxacin HCl [Cipro] 500 mg PO BID #20 tablet 07/29/23 Metoclopramide [Reglan] 10 mg PO Q6H PRN #20 tablet 07/29/23 metroNIDAZOLE [Flagyl] 500 mg PO TID 7 Days #30 tablet 07/29/23 - Allergies Allergies/Adverse Reactions: Allergies Allergy/AdvReac Type Severity Reaction Status Date / Time codeine AdvReac Nausea Verified 07/29/23 19:39 - Social History Does the pt smoke?: No Smoking Status: Never smoker Does the pt drink ETOH?: No Does the pt have substance abuse?: No - Immunizations Immunizations are current?: Yes - POLST Patient has POLST: No PD ED PE NORMAL - Vitals Vital signs reviewed: Yes - General General: Alert and oriented X 3, No acute distress - Abdomen Abdomen: Normal bowel sounds, Soft, Non tender - Neuro Neuro: Alert and oriented X 3, Normal speech Results - Vitals Vitals: Vital Signs - 24 hr 07/29/23 07/29/23 19:35 19:45 Temperature 36.2 C L 36.2 C L Heart Rate 73 73 Respiratory 16 16 Rate Blood Pressure 125/87 H 125/87 H O2 Saturation 99 99 Oxygen O2 Source Room air PD Medical Decision Making - ED course ED course: He presents with nausea after starting Augmentin. Case discussed by phone with Dr. Mace and will change him over to Cipro/Flagyl. Departure - Departure Disposition: Home, Self Care Clinical Impression: Nausea Condition: Good Record reviewed to determine appropriate education?: Yes Instructions: ED Nausea Vomiting Prescriptions: Ciprofloxacin HCl [Cipro] 500 mg PO BID #20 tablet metroNIDAZOLE [Flagyl] 500 mg PO TID 7 Days #30 tablet Metoclopramide [Reglan] 10 mg PO Q6H PRN #20 tablet PRN Reason: nausea or headache Comments: I sent your prescription electronically to the [facility] pharmacy at the corner of [address] in [place]. You can stop the Augmentin. Return if worse. Follow-up as recommended on prior visits. Forms: PCP List
[2023-07-29 20:53] VITALS: BP 139/96
== END 2023-07-29 20:44 | disposition home or self-care (01) ==
LOC: ED 19:23
DX: R11.0 Nausea (principal)
CPT/HCPCS: 99283; 99284; A9270